=== PATIENT | female | born 1945 | race Caucasian/White ===

== ENCOUNTER 2022-06-06 08:29 | Emergency (ER) | payer OTHER ==
[~2022-06-06] VITALS: Ht 157.5 cm; Wt 72.6 kg
[2022-06-06 08:52] VITALS: BP_SYST 171
--- NOTE | 2022-06-06 09:15 | NUR ---
MD AT BEDSIDE IN TRIAGE
[2022-06-06] MEDS ORDERED: ACET-2634 PO (09:29)
[2022-06-06] MEDS ORDERED: AUG875 PO (09:29)
--- NOTE | 2022-06-06 09:45 | NUR ---
Patient given written and verbal discharge instructions and verbalizes understanding. BENITO GUIDRY MD discussed with patient the results and treatment provided. Patient in stable condition. ID arm band removed. Rx of AMOXICILLIN AND EXTRA STRENGTH TYLENOL given. Patient educated on pain management and to follow up with PMD. Pain Scale 2. Opportunity for questions provided and answered. Medication side effect fact sheet provided.
[2022-06-06 10:12] VITALS: BP_SYST 144
== END 2022-06-06 10:12 | disposition home or self-care (01) ==
LOC: SED 08:29
DX: L03.211 Cellulitis of face (principal); K08.89 Other specified disorders of teeth and supporting structures; Z79.899 Other long term (current) drug therapy
CPT/HCPCS: 99283